=== PATIENT | female | born 1960 | race Caucasian/White ===

== ENCOUNTER → 2018-01-08 | Outpatient (CLI) | payer MEDICARE, BC ==
[2018-01-03 14:08] VITALS: BMI 42.3
[2018-01-08 12:25] VITALS: BP 110/79; PULSE 99; RESP 18; TEMP 99
--- NOTE | 2018-01-08 12:42 | P.HPIM ---
History of Present Illness H&P Date: 01/08/18 Chief Complaint: low back pain and lower extremity pain This is a 57-year-old patient referred by Dr. Jensen for chronic pain in low back with mild radiation to the hips. Patient also has diabetic neuropathy in both feet with severe numbness/tingling and cramps. Patient has been taking medications from neurologist including Roe medications with some relief. Patient denies adverse drug effects from medications. Patient also denies new- onset weakness, bowel/bladder incontinence, or any other signs or symptoms of cauda equina syndrome. There are no signs of acute intoxication, and no indications of medication diversion or overuse. Patient notes that pain worsens significantly with standing for long periods of time and improves with rest and medication. Patient has used several types of medications for pain, including NSAIDS, OPIOIDS, Soma Patient HAS/HAS NOT had surgery. Patient HAS had injections previously (lumbar RFA at our facility, last in 2013) . Patient HAS NOT had physical therapy recently. In addition to above, 13-point review of systems is also negative for chest pain , shortness of breath, changes in vision, changes in hearing, new onset weakness , abdominal pain, diarrhea, extreme fatigue, malaise, fever, skin changes, homicidal or suicidal ideation, or bowel or bladder incontinence. Vital Signs: Reviewed in EMR Gen: WDWN, AAOx3, NAD HEENT: NCAT, EOMI, hearing grossly normal Pulm: resp unlabored Abd: soft, NT, ND Neck: supple, trachea midline ROM in flexion lumbar spine: reduced ROM in extension lumbar spine: reduced Lumbar paravertebral tenderness: + Facet loading: + bilateral, R > L SI joint tenderness: neg Abraahm's test: + R side Straight leg raise: neg Lower extremity: decreased ROM dorsiflexion/plantarflexion strength, hip flexion/extension, and knee flexion/extension secondary to pain Neuro: CN II-XII grossly intact, muscle strength lower extremities PRESERVED Past Medical History Past Medical History: Diabetes Mellitus, Fibromyalgia, GERD/Reflux, Hypertension , Osteoarthritis (OA) Additional Past Medical History / Comment(s): NEUROPATHY, IBS, HIATAL HERNIA, "bad indigestion", hx ulcer, overactive bladder History of Any Multi-Drug Resistant Organisms: None Reported Past Surgical History: Breast Surgery, Cholecystectomy Additional Past Surgical History / Comment(s): PAIN CLINIC PROCEDURE, RT BREAST LUMPECTOMY Past Anesthesia/Blood Transfusion Reactions: Motion Sickness Smoking Status: Never smoker - Past Family History Mother Family Medical History: No Reported History Medications and Allergies Home Medications Medication Instructions Recorded Confirmed Type ALPRAZolam [Xanax] 0.25 mg PO Q8HR PRN 03/21/14 01/08/18 History DULoxetine HCL [Cymbalta] 60 mg PO BID 03/21/14 01/08/18 History Fish Oil/Dha/Epa [Fish Oil 1,200 1,200 mg PO DAILY 03/21/14 01/08/18 History mg Fish Oil] Glucosamine Sulfate 1,000 mg PO BID 03/21/14 01/08/18 History Hydrochlorothiazide [Hydrodiuril] 25 mg PO QAM 03/21/14 01/08/18 History Lisinopril [Prinivil] 20 mg PO QAM 03/21/14 01/08/18 History Magnesium 400 mg PO BID 03/21/14 01/08/18 History Meloxicam [Mobic] 15 mg PO HS 03/21/14 01/08/18 History Oxybutynin Chloride [Ditropan XL] 5 mg PO HS 03/21/14 01/08/18 History Carisoprodol [Soma] 350 mg PO TID PRN 05/21/14 01/08/18 History Ascorbic Acid [Vitamin C] 500 mg PO DAILY 01/03/18 01/08/18 History Cetirizine HCl [Zyrtec] 10 mg PO HS 01/03/18 01/08/18 History Cholecalciferol [Vitamin D3] 5,000 unit PO WESA 01/03/18 01/08/18 History Cyanocobalamin (Vitamin B-12) 1,000 mcg PO DAILY 01/03/18 01/08/18 History [Vitamin B-12] Dicyclomine [Bentyl] 10 mg PO BID 01/03/18 01/08/18 History Diphenoxylate HCl/Atropine 1 each PO BID 01/03/18 01/08/18 History [Lomotil 2.5-0.025 mg Tablet] Fluticasone Nasal [place] [Flonase 2 spr EA NOSTRIL HS 01/03/18 01/08/18 History Nasal [place]] Gabapentin [Neurontin] 600 mg PO TID 01/03/18 01/08/18 History Hydrocodone/Acetaminophen [Roe 1 tab PO Q6HR PRN 01/03/18 01/08/18 History 7.5-325] metFORMIN HCL [Glucophage] 1,000 mg PO BID 01/03/18 01/08/18 History rOPINIRole HCL [Requip] 1.5 mg PO HS 01/03/18 01/08/18 History traZODone HCL [Desyrel] 20 - 50 mg PO HS PRN 01/03/18 01/08/18 History Allergies Allergy/AdvReac Type Severity Reaction Status Date / Time No Known Allergies Allergy Verified 01/08/18 12:12 Results Comments: MRI lumbar spine with and without contrast dated 09/18/2017 demonstrates severe bilateral facet arthritis at the L4-L5 level with 3 mm anterolisthesis of L4 on L5 without any disc extrusion. There is also asymmetric facet arthritis at the L3 4 level there is severe on the left and moderate on the right with mild bilateral foraminal stenosis. At the L5-S1 level there is mild bilateral facet arthropathy with a right-sided predominance. There is also mild symmetric disc bulge at this level without extrusion. Assessment and Plan (1) Lumbar spondylosis Current Visit: Yes Status: Chronic Code(s): M47.816 - SPONDYLOSIS W/O MYELOPATHY OR RADICULOPATHY, LUMBAR REGION SNOMED Code(s): 863390341 (2) Chronic pain syndrome Current Visit: Yes Status: Chronic Code(s): G89.4 - CHRONIC PAIN SYNDROME SNOMED Code(s): 288372636 (3) Obesity Current Visit: Yes Status: Chronic Code(s): E66.9 - OBESITY, UNSPECIFIED SNOMED Code(s): 643194993 Plan: 1. Explanation: Opioid and psychological risk scores were reviewed. Diagnoses , prognoses, and multiple treatment options including but not limited to physical therapy, interventional therapies, adjuvant medical therapies, narcotic medication therapies, and surgery were discussed with the patient and all questions were answered to the patient's satisfaction. 2. Opioid agreement: no opioids prescribed today 3. Counseling: The patient was counseled extensively on BODY MASS INDEX, EXERCISE. Specifically, the patient was instructed regarding the importance of weight control, and exercise in the context of both chronic pain and overall health. 4. Procedures: bilateral LMBB (patient states that she got better relief from MBB than RFA in the past) L3-S1 5. Consultations: none 6. Investigations: none 7. Medications: none prescribed 8. Disposition: f/u for procedure as scheduled PQRS measures: 1-Patient's medications are documented in the chart. 2-Tobacco use is negative, counseling given 3-Patient has not had a pneumococcal vaccine. 4-Advanced care planning discussed, patient unable to give. 5-Opioid contract NOT signed with the patient. 6-Pain positive, follow-up visit or procedure scheduled 7-Patient's blood pressure measured and documented, and WNL. 8-Patient's weight was measured, and body mass index ABOVE the normal limits, and counseling was done. Patient instructed to follow up with PCP. 9-Patient WAS NOT identified as an unhealthy alcohol user. Time with Patient: Greater than 30
== END | disposition home or self-care (01) ==
LOC: PNWHC3 11:57
PROVIDERS: ATTEND Anesthesiology
DX: G89.4 Chronic pain syndrome (principal); M47.816 Spondylosis without myelopathy or radiculopathy, lumbar region; E11.9 Type 2 diabetes mellitus without complications; K21.9 Gastro-esophageal reflux disease without esophagitis; M79.7 Fibromyalgia; I10 Essential (primary) hypertension; E66.9 Obesity, unspecified; M19.90 Unspecified osteoarthritis, unspecified site; Z79.891 Long term (current) use of opiate analgesic; Z79.899 Other long term (current) drug therapy; Z79.1 Long term (current) use of non-steroidal anti-inflammatories (NSAID); Z79.84 Long term (current) use of oral hypoglycemic drugs; Z68.41 Body mass index [BMI] 40.0-44.9, adult
CPT/HCPCS: 99211

== ENCOUNTER 2018-02-12 06:36 | Day surgery (SDC) | payer MEDICARE, BC ==
[2018-02-08 08:15] VITALS: BMI 43.0
[~2018-02-12 06:36] MED LIST: LACTATED RINGERS 1,000 ML IV SCH
[2018-02-12 08:06] VITALS: TEMP 98
[2018-02-12] MEDS ORDERED: LIDOCAINE 1% 20 ML VIAL (10MG/ML) FOR IV START INTRADERMA ONE (08:18)
[2018-02-12 08:22] LABS: Glucose,Whole Blood 93 mg/dL (75-99)
--- NOTE | 2018-02-12 08:48 | P.PCN ---
Date of Procedure: 02/12/18 Surgeon: Carl Agudelo Description of Procedure: PREOPERATIVE DIAGNOSIS : 1- Lumbar spondylosis with Facet Arthropathy without myelopathy . 2- Lumber degenerative disc disease POSTOPERATIVE DIAGNOSIS: 1- Lumbar spondylosis with Facet Arthropathy without myelopathy . 2- Lumber degenerative disc disease PROCEDURE: Diagnostic bilateral L3 -4 , L4 -5 , and L5-S1 medial branch block under fluoroscopy ANESTHESIA: Local with 1% lidocaine; IV sedation with Versed 2 mg . EBL: Negligible COMPLICATION: None. PROCEDURE INDICATION: Chronic low back pain secondary to Facet arthropathy unresponsive to conservative treatment. PROCEDURE DESCRIPTION: the patient was seen and identified in the preop holding area , risks and benefits and possible complications of the procedure and alternatives were discussed with the patient, and the patient agreed to proceed with the procedure and signed the consent. IV was started and vital signs monitored during the procedure and fluoroscopy was used to maximize the benefit and accuracy of the needle placement, sedation was given to decrease patient anxiety, patient was taken to the procedure room and placed in prone position vital signs monitored. The patient was brought into the procedure room and placed in prone position. Skin was prepped with Chloraprep and draped in a sterile manner. Lidocaine 1 % was used to numb the skin up at the target points that were chosen as follows : at the L5-S1 level which corresponds to the dorsal ramus of L5 the target points were at the superior medial aspect of the sacral ala on each side of the spine on the AP view of fluoroscopy, and for theL2, L3 and L4 medial branches the target points were the connection between the transverse process and the superior to go process of L3, L4 and L5 respectively on the oblique views of fluoroscopy. I used 22-gauge 5 inch Quincke spinal needles for this procedure and after contacting bone at the target points mentioned above I injected 1 mL of a mixture of Kenalog 40 mg +5 MLS of Marcaine 0.5% PF . Patient tolerated procedure well. At the end of the procedure the needles removed and a bandage applied after the skin was cleaned the cleaning solution. patient was then taken to the recovery room in stable condition and monitored in the recovery room for 20-30 minutes and discharged home in stable condition after discharge criteria met .
[2018-02-12] MEDS ORDERED: IV FLUID CONTINUATION 1,000 ML IV ONE (08:51)
[2018-02-12 09:03] VITALS: RESP 18
[2018-02-12 09:15] VITALS: BP 100/78; PULSE 78
--- NOTE | 2018-02-12 14:58 | FL ---
EXAMINATION TYPE: FL guided pain mgmt statistic DATE OF EXAM: 02/12/2018 CLINICAL HISTORY: Low back pain. TECHNIQUE: Fluoroscopy. COMPARISON: None. FINDINGS: Fluoroscopic guidance was provided during pain relief procedure performed by Dr. Agudelo . A total of 29 seconds of fluoroscopic time was utilized during the procedure and 3 spot intraoperat diana images are acquired. Images acquired shows needle localization multiple levels in the lumbar spi ne and at lumbosacral junction bilaterally. IMPRESSION: As Above.
== END 2018-02-12 09:30 | disposition home or self-care (01) ==
LOC: ORPAIN 06:36
PROVIDERS: ATTEND Anesthesiology
DX: G89.29 Other chronic pain (principal); M47.816 Spondylosis without myelopathy or radiculopathy, lumbar region; M51.36 Other intervertebral disc degeneration, lumbar region; E11.9 Type 2 diabetes mellitus without complications; E66.9 Obesity, unspecified; Z68.41 Body mass index [BMI] 40.0-44.9, adult; M79.7 Fibromyalgia; K21.9 Gastro-esophageal reflux disease without esophagitis; I10 Essential (primary) hypertension; K58.9 Irritable bowel syndrome, unspecified; F32.9 Major depressive disorder, single episode, unspecified
CPT/HCPCS: 64493; 64494; 64495; J2250; J3301; 99152

== ENCOUNTER 2018-03-14 07:16 | Day surgery (SDC) | payer MEDICARE, BC ==
[2018-03-13 11:23] VITALS: BMI 44.6
[2018-03-14] MEDS ORDERED: LACTATED RINGERS 1,000 ML IV SCH (07:45)
[2018-03-14] MEDS ORDERED: LIDOCAINE 1% 20 ML VIAL (10MG/ML) FOR IV START INTRADERMA ONE (08:04)
[2018-03-14 08:08] VITALS: TEMP 97.4
[2018-03-14 08:18] LABS: Glucose,Whole Blood 106 mg/dL (75-99)
--- NOTE | 2018-03-14 08:27 | P.PCN ---
Date of Procedure: 03/14/18 Surgeon: Robert Cheung Pathology: none sent Condition: stable Disposition: PACU Description of Procedure: PREOPERATIVE DIAGNOSIS: Lumbar spondylosis without myelopathy and facet arthropathy. POSTOPERATIVE DIAGNOSIS: Lumbar spondylosis without myelopathy and facet arthropathy. PROCEDURE DESCRIPTION: Patient presents for L3-L4, L4-L5 and L5-S1 diagnostic medial branch blocks under fluoroscopic guidance. The procedure is performed using fluoroscopic guidance during needle placement to assure proper position and maximize safety. ANESTHESIA: Local with 1% lidocaine; conscious sedation EBL: Minimal PROCEDURE INDICATION: Patient with lumbar facet arthropathy signs and symptoms, here for diagnostic medial branch block #2 after 10 days' relief from first procedure. Pt does not take any blood thinning medications. PROCEDURE DESCRIPTION: The patient was seen and identified in the preoperative area. Risks, benefits, complications, and alternatives were discussed with the patient (including but not limited to incomplete pain relief, bleeding, infection, nerve damage, and allergies to medications), the patient agreed to proceed with the procedure and signed the consent after all questions were answered. Patient was taken to the OR and time out was completed to verify proper patient, position, laterality of pain, and allergies. Pt was placed in the prone position and a pillow was placed under the abdomen to reduce lumbar lordosis. The lumbosacral area was prepped and draped in the usual sterile fashion. Using oblique fluoroscopy, the eye of the "David dog" of right L4 vertebral body, which corresponds to the path of the medial branch originating from the level above, which is L3 in this case, was identified. Subsequently, a 22-gauge 5-inch spinal needle was inserted under fluoroscopic guidance toward the eye of the "David dog" of the right L4 vertebral body, corresponding to the junction of the superior articular process and the transverse process of the pedicle of the same level. After needle tip confirmation on lateral view and after negative aspiration for CSF and blood and without paresthesias, 1 mL of a 6 ml solution of 0.5% preservative-free bupivacaine and 40 mg Kenalog was injected. Subsequently the needle was withdrawn intact and the same procedure was repeated for the right L4, right L5, left L3, left L4, and left L5 medial branches which together with right L3 medial branch correspond to the sensory innervation of the bilateral L3-L4, L4-L5, and L5-S1 facet joints. Needle was withdrawn intact after each injection. At the end of the procedure, the skin was cleansed and bandages were applied. COMPLICATIONS: None. DISPOSITION/PLAN: The patient taken to the recovery area after the procedure in a stable condition for observation. Patient was reexamined prior to discharge and there were no issues. Patient was discharged home, accompanied by an adult, after meeting discharged criteria. Discharge instructions were give to the patient by the staff. Patient was specifically instructed not to drive today and to rest for the rest of the day. Patient will follow up in clinic for further evaluation.
[2018-03-14] MEDS ORDERED: IV FLUID CONTINUATION 1,000 ML IV ONE ×2 (08:30)
[2018-03-14 08:35] VITALS: RESP 16
[2018-03-14 08:46] VITALS: BP 110/70; PULSE 82
--- NOTE | 2018-03-14 09:17 | FL ---
EXAMINATION TYPE: FL guided pain mgmt statistic DATE OF EXAM: 03/14/2018 COMPARISON: NONE HISTORY: Back pain TECHNIQUE: Fluoroscopy. FINDINGS/IMPRESSION: Fluoroscopic guidance was provided during procedure performed by Dr. Cheung. A total of 23 seconds of fluoroscopic time was utilized during the procedure and 6 spot images was acqu ired demonstrating localization at multiple levels of the lumbar spine.
== END 2018-03-14 09:00 | disposition home or self-care (01) ==
LOC: ORPAIN 07:16
PROVIDERS: ATTEND Anesthesiology
DX: M47.816 Spondylosis without myelopathy or radiculopathy, lumbar region (principal); E11.9 Type 2 diabetes mellitus without complications; K58.9 Irritable bowel syndrome, unspecified; M79.7 Fibromyalgia; K21.9 Gastro-esophageal reflux disease without esophagitis; I10 Essential (primary) hypertension; E78.5 Hyperlipidemia, unspecified
CPT/HCPCS: 64493; 64494; 64495; J2250; J3301; 99152

== ENCOUNTER → 2018-04-10 | Outpatient (CLI) | payer MEDICARE, BC ==
[2018-04-10 13:30] VITALS: BP 154/84; PULSE 90; RESP 18; TEMP 97.9
--- NOTE | 2018-04-10 19:52 | P.PAINPG ---
Subjective Progress Note Date: 04/10/18 Principal diagnosis: This is follow-up visit for this patient with a history of severe and chronic low back pain secondary to lumbar degenerative disc disease, lumbar facet arthropathy, We have done an interventional pain procedure did not significant medial branch block at L3-L4 ,L4-5 , L5-S1 X2 , she got more than 60% decrease in her low back pain after the diagnostic medial branch block , that is before the block was 6/10 decrease to 2/10 after the block and it was for short-term The patient currently on [place] 7.5/325 every 6 hours when necessary, Mobic 15 mg daily at bedtime and Soma when necessary, ( prescription from PCP ) Patient denies any side effect of the medication , patient denies any excessive drowsiness or sleepiness, patient denies any suicidal ideation, Patient reported that the current medication is helping to control the pain and improve the activity of daily livings, Patient denies any motor or sensory deficit, denies any change in the bowel movement or urination, patient denies any fever or night sweats. Objective - Vital Signs Vital signs: Vital Signs Temp 97.9 F 04/10/18 13:20 Pulse 90 04/10/18 13:20 Resp 18 04/10/18 13:20 BP 154/84 04/10/18 13:20 Pulse Ox Intake & Output 04/10/18 04/10/18 04/11/18 06:59 18:59 06:59 Weight 127.006 kg - Exam Physical Examinations : 1-Constitutiona : Cooperative , not in acute distress . 2-HEENT : nech ; supple , no Lymphadenopathy , normal thyroid size . eyes : no ptosis , no icterus, no photophobia . ENT : normal of hearing , normal oropharynx , no Thrush . 3- Respiratory : Chest clear to auscultations Bilaterally , no wheezing , no Rhonchi . 4- Cardiovascular : regular rate and rhythem , S1 , S2 , no S3 , no S4. 5- Gastrointestinal : abdomen soft no tenderness , bowel sounds , no organomegally . 6- Genitourinary : Defferred . 7- neurologic : Cranial nerve II to XII intact , no focal neurological deffecit . 8-psychatric : alert , oriented X 3 , appropriate affect , intact judgment and insight . 9-Lymphatic : no Lymphadenopathy . 10- musculoskeltal : Lumber spine = normal moter stegnth lower extremities ,thigh and legs .5/5 deep tendon reflexes : normal Knee Jerk , normal ankle Jerk . lumber facet Loading Test positive strait leg raising test positive at 30 degree Right , positve at 30 degree Left Fabere test positive Right and positive Left Sever tenderness over the Sacroiliac joint on the Right , and Left side Assessment and Plan Plan: Assessment and plan= chronic low back pain secondary to lumbar degenerative disc disease , lumbar spondylosis with lumbar facet arthropathy She had a good result after the diagnostic medial branch block the pain level will decrease from 6/10 at 2/10 for pain relief lasted for short-term only She will be good candidate to have the frequency ablation medial branch lumbar area, procedure risk and benefits and alternative discussed with the patient she agreed with the preceding , we will schedule patient for radiofrequency ablation of the right side L3 to S1, and later on we will do the left side Time with Patient: Less than 30 PQRS Measure Charge Sheet Measure #130: Documentation of Current Meds in Medical Chart: Patient's medications documented in chart Measure #226: Tobacco Use: Screen & Cessation Intervention: Pt screened for tobacco use AND intervention given Measure #111: Pneumonia Vaccination: Pneumococcal vaccine administered or previously received Measure #47: Advance Care Plan: Advance care planning discussed & documented, plan or surrogate given Measure #412: Opioid Treatment Agreement: No documentation of signed opioid treatment agreement Measure #408: Opioid Therapy Follow-up Evaluation: Patient had NO f/u eval minimum every 3 months during opioid therapy Measure #317: Preventitive Care & Scrn High Bld Press & F/U: Pre-hypertensive or hypertensive BP documented, pt will f/u with PCP Measure #128: Body Mass Index (BMI) Screening & Follow-up: BMI documented ABOVE normal parameters - f/u documented Measure #131: Pain Assessment & Follow-up: Pain positive & plan documented, Follow-up scheduled Measure #431: Unhealthy Alcohol Use Preventative Care & Scrn: Patient identified as unhealthy alcohol user; counseling given PQRS Narrative: Smoking Status Never smoker Do You Want the Pneumonia Vaccine Up to Date Vaccine AT THIS TIME? Blood Pressure 154/84 Pain Intensity [Bilateral 3 Lower Back] Hx Alcohol Use (MH) No Home Medications: Ambulatory Orders ALPRAZolam [Xanax] 0.25 mg PO Q8HR PRN 03/21/14 DULoxetine HCL [Cymbalta] 60 mg PO BID 03/21/14 Fish Oil/Dha/Epa [Fish Oil 1,200 mg Fish Oil] 1,200 mg PO DAILY 03/21/14 Glucosamine Sulfate 1,000 mg PO BID 03/21/14 Hydrochlorothiazide [Hydrodiuril] 25 mg PO QAM 03/21/14 Lisinopril [Prinivil] 20 mg PO QAM 03/21/14 Magnesium 400 mg PO BID 03/21/14 Meloxicam [Mobic] 15 mg PO HS 03/21/14 Oxybutynin Chloride [Ditropan XL] 5 mg PO HS 03/21/14 Carisoprodol [Soma] 350 mg PO TID PRN 05/21/14 Ascorbic Acid [Vitamin C] 500 mg PO DAILY 01/03/18 Cetirizine HCl [Zyrtec] 10 mg PO HS 01/03/18 Cholecalciferol [Vitamin D3] 2,000 unit PO WESA 01/03/18 Cyanocobalamin (Vitamin B-12) [Vitamin B-12] 1,000 mcg PO DAILY 01/03/18 Dicyclomine [Bentyl] 10 mg PO BID 01/03/18 Diphenoxylate HCl/Atropine [Lomotil 2.5-0.025 mg Tablet] 1 each PO BID 01/03/18 Fluticasone Nasal [place] [Flonase Nasal [place]] 2 spr EA NOSTRIL HS 01/03/18 Gabapentin [Neurontin] 600 mg PO TID 01/03/18 Hydrocodone/Acetaminophen [[place] 7.5-325] 1 tab PO Q6HR PRN 01/03/18 metFORMIN HCL [Glucophage] 1,000 mg PO BID 01/03/18 rOPINIRole HCL [Requip] 1 mg PO HS 01/03/18 traZODone HCL [Desyrel] 25 - 50 mg PO HS PRN 01/03/18 Controlled Substance Measures - Controlled Substance Measures Is patient prescribed a controlled substance at discharge?: No If prescribed controlled substance>3 days was MAPS reviewed?: No When asked, does pt state using other controlled substances?: Yes
== END | disposition home or self-care (01) ==
LOC: PNWHC3 13:11
PROVIDERS: ATTEND Specialist
DX: G89.29 Other chronic pain (principal); M54.5 Low back pain; M51.36 Other intervertebral disc degeneration, lumbar region; M47.816 Spondylosis without myelopathy or radiculopathy, lumbar region; M46.86 Other specified inflammatory spondylopathies, lumbar region; Z79.891 Long term (current) use of opiate analgesic; Z79.1 Long term (current) use of non-steroidal anti-inflammatories (NSAID); Z79.899 Other long term (current) drug therapy
CPT/HCPCS: 99211

== ENCOUNTER 2018-05-08 07:18 | Day surgery (SDC) | payer MEDICARE, BC ==
[2018-05-07 09:42] VITALS: BMI 44.6
[2018-05-08 08:26] VITALS: TEMP 97.5
[2018-05-08] MEDS ORDERED: LIDOCAINE 1% 20 ML VIAL (10MG/ML) FOR IV START INTRADERMA ONE (08:38)
[2018-05-08] MEDS ORDERED: LACTATED RINGERS 1,000 ML IV ONE (08:38)
[2018-05-08 08:46] LABS: Glucose,Whole Blood 94 mg/dL (75-99)
[2018-05-08] MEDS ORDERED: IV FLUID CONTINUATION 1,000 ML IV ONE (09:24)
[2018-05-08 09:26] VITALS: RESP 16
--- NOTE | 2018-05-08 09:50 | FL ---
EXAMINATION TYPE: FL guided pain mgmt statistic DATE OF EXAM: 05/08/2018 COMPARISON: NONE HISTORY: Back pain TECHNIQUE: Fluoroscopy. FINDINGS/IMPRESSION: Fluoroscopic guidance was provided during procedure performed by Dr. Cheung. A total of 7 seconds of fluoroscopic time was utilized during the procedure and 2 spot images was acqui red demonstrating multilevel localization of the lumbar spine.
[2018-05-08 09:53] VITALS: BP 102/65; PULSE 79
--- NOTE | 2018-05-08 10:08 | P.PCN ---
Date of Procedure: 05/08/18 Surgeon: Robert Cheung Pathology: none sent Condition: stable Disposition: PACU Description of Procedure: PREOPERATIVE DIAGNOSIS: Lumbar spondylosis without myelopathy and facet arthropathy POSTOPERATIVE DIAGNOSIS: Lumbar spondylosis without myelopathy and facet arthropathy PROCEDURES: Right Radiofrequency thermocoagulation, L3-L4, L4-L5, and L5-S1 medial branch, with fluoroscopic guidance. ANESTHESIA: 1% lidocaine plain; Conscious sedation with versed/fentanyl EBL: Minimal PROCEDURE INDICATION: The patient with low back pain secondary to lumbar arthropathy who had more than 50% relief of pain with previous diagnostic lumbar medial branch block with bupivacaine. Patient presents for lumbar RFA today; no use of blood thinners. PROCEDURE DESCRIPTION / TECHNIQUE: The patient was seen and identified in the preoperative area. Risks, benefits, complications, and alternatives were discussed with the patient (including but not limited to incomplete pain relief , bleeding, infection, nerve damage, and allergies to medications), the patient agreed to proceed with the procedure and signed the consent after all questions were answered. Patient was taken to the OR and time out was completed to verify proper patient , position, laterality of pain, and allergies. Pt was placed in the prone position. IV was started. Vital signs remained stable throughout the procedure. A pillow was placed under the patients chest to decrease lordosis. The lumbosacral area was prepped and draped in the usual sterile fashion. Vital signs were closely monitored during the procedure. Conscious sedation was used during the procedure to decrease patients anxiety. Using AP and then oblique fluoroscopy, the eye of the David dog corresponding to the connection between the superior and transverse articular processes of right L3, L4, L5 and top of the sacrum were identified, marked, and localized with 1% lidocaine. Subsequently, a 18 gauge, 150-mm radiofrequency cannula with a 10-mm active tip was advanced guided by fluoroscopy to each of the eyes of the David dog at the levels of all four medial branches. Each site then underwent sensory testing at 50 Hz and 0 to 1 volt and motor testing at 2 Hz and 0 to 3 volt with local stimulation, but no radicular symptoms down the legs. Thereafter all four medial branch sites underwent radiofrequency thermocoagulation at 80 degrees Celsius for 90 seconds after injecting 0.5 ml of PF lidocaine 1%. After thermocoagulation, 1 ml of the block solution containing Kenalog 40 mg and 2 mL of preservative-free normal saline was injected at all four medial branch levels after negative aspiration of CSF and blood and with no paresthesias. Cannulas were retracted while injecting lidocaine 1% until the needles were removed. At the end of the procedure, the skin was cleansed and bandages were applied. COMPLICATIONS: No acute complications. DISPOSITION / PLANS: The patient was placed in a supine position and transferred to the recovery area in a stable condition for observation and was discharged from the recovery room after meeting discharge criteria. Home discharge instructions given to the patient by the staff. The patient was reexamined prior to discharge. The patient will schedule left lumbar RFA at next visit.
== END 2018-05-08 10:00 | disposition home or self-care (01) ==
LOC: ORPAIN 07:18
PROVIDERS: ATTEND Anesthesiology
DX: G89.29 Other chronic pain (principal); M47.816 Spondylosis without myelopathy or radiculopathy, lumbar region; M51.36 Other intervertebral disc degeneration, lumbar region; E11.9 Type 2 diabetes mellitus without complications; M79.7 Fibromyalgia; K21.9 Gastro-esophageal reflux disease without esophagitis; I10 Essential (primary) hypertension; Z79.1 Long term (current) use of non-steroidal anti-inflammatories (NSAID); Z79.899 Other long term (current) drug therapy; Z78.0 Asymptomatic menopausal state
CPT/HCPCS: 64635; 64636; J2250; J3301; J3010; 99152

== ENCOUNTER 2018-06-06 08:07 | Day surgery (SDC) | payer MEDICARE, BC ==
[2018-05-31 15:03] VITALS: BMI 42.3
[2018-06-06 08:33] VITALS: TEMP 98.5
[2018-06-06] MEDS ORDERED: LIDOCAINE 1% 20 ML VIAL (10MG/ML) FOR IV START INTRADERMA ONE (08:45)
[2018-06-06 08:54] LABS: Glucose,Whole Blood 121 mg/dL (75-99)
--- NOTE | 2018-06-06 09:41 | P.PCN ---
Date of Procedure: 06/06/18 Procedure(s) Performed: PREOPERATIVE DIAGNOSIS: 1-Lumbar Spondylosis with Facet Arthropathy without myelopathy. POSTOPERATIVE DIAGNOSIS: 1- Lumbar Spondylosis with Facet Arthropathy without myelopathy. PROCEDURES : Left Radiofrequency thermocoagulation, L3-L4, L4-L5, and L5-S1 medial branch, with fluoroscopic guidance ANESTHESIA: Moderate sedation with intravenous versed 2 mg and fentaneyl 100 mcg and local infiltration with lidocaine 1% 6 ml EBL: Minimal PROCEDURE INDICATION: The patient with low back pain secondary to lumbar facet arthropathy who had more than 50% relief of her pain with previous diagnostic lumbar medial branch block with bupivacaine. PROCEDURE DESCRIPTION / TECHNIQUE: The patient was seen and identified in the preoperative area. Risks, benefits, complications, including but not limited to risk of infection ,bleeding , allergic reactions to the medications and no complete pain releife , and alternatives were discussed with the patient, the patient agreed to proceed with the procedure and signed the consent. IV was started. Vital signs remained stable throughout the procedure. Patient was taken to the OR and time out was completed. The patient was placed in the prone position on the procedure table. The lumber area was prepped and draped in the usual sterile fashion. . Vital signs were closely monitored during the procedure .IV sedation was used during the procedure to decrease patients anxiety. Using AP and then oblique fluoroscopy, the ``eye of the David dog corresponding to the connection between the superior and transverse articular processes of Left L3, L4, and L5 were identified, marked, and localized with 1 % lidocaine. Subsequently, a [id number] radiofrequency cannula with a 10- mm active tip was advanced guided by fluoroscopy to each of the ``eyes of the David dog at Left L3, L4, and L5. Each site then underwent sensory testing at 50 Hz and 0 to 1 volt and motor testing at 2.5 Hz and 0 to 3 volt with local stimulation, but no radicular symptoms down the legs. Thereafter the Left L3-4, L4-5, and L5-S1 sites underwent radiofrequency thermocoagulation at 80 degrees celsius for 90 seconds after injecting 0.5 ml of PF lidocaine 1%. then After the thermocoagulation done , 1 ml of the block solution containing Kenalog 40 mg and 3 ml of marcain 0.5% was injected at the left L3-4 , L4-5 , and L5-S1, levels after negative aspiration of CSF and blood and with no paresthesias. Cannulas were retracted while injecting lidocaine 1% until the needle is out ,At the end of the procedure, the skin was cleansed and bandages were applied. COMPLICATIONS: No acute complications. DISPOSITION / PLANS: The patient was placed in a supine position and transferred to the recovery area in a stable condition for observation and was discharged from the recovery room after meeting discharge criteria. Home discharge instructions given to the patient by the staff. The patient was reexamined prior to discharge. The patient will schedule a follow up in the clinic in 2-4 weeks.
--- NOTE | 2018-06-06 09:46 | FL ---
Fluoroscopy HISTORY: Pain 7 seconds fluoroscopy time supplied to the referring clinician. 3 intraoperative C-arm images docume nt the procedure. See dictated report from anesthesia.
[2018-06-06] MEDS ORDERED: IV FLUID CONTINUATION 1,000 ML IV ONE (09:50)
[2018-06-06 09:55] VITALS: RESP 18
[2018-06-06 10:12] VITALS: BP 101/85; PULSE 90
== END 2018-06-06 10:24 | disposition home or self-care (01) ==
LOC: ORPAIN 08:07
PROVIDERS: ATTEND Specialist
DX: M47.816 Spondylosis without myelopathy or radiculopathy, lumbar region (principal); E11.9 Type 2 diabetes mellitus without complications
CPT/HCPCS: 64635; 64636 ×2; J2250; J3301; J3010; 99152